=== PATIENT | female | born 1955 | race Caucasian/White ===

== ENCOUNTER → 2017-03-24 | Outpatient (CLI) | payer OTHER ==
--- NOTE | ~2017-03-24 | BD1 ---
[facility] A Service of [facility] RADIOLOGY TEXT RESULTS PATIENT: KINJAL SOLANO LOCATION: [facility] : 57 UNIT #: [id number] AGE: [address]: Lesli Archer APRN SEX: F ORDER DR: [id number] [facility] [address] [place], [place] [address] [id number] O MR#: [id number] Acc #: [id number] NAME: KINJAL SOLANO : 1955 SEX: F STUDY DATE/TIME: 03/24/2017 10:35 UNIT: [facility] ROOM: STUDY DESCRIPTION: Dexa Bone Dens 1+ Site Attending Physician: Lesli Archer A.P.R.N. Referring Physician: Lesli Archer A.P.R.N. Ordering Physician: Lesli Archer A.P.R.N. Primary Care Physician: Lesli Archer A.P.R.N. MEDICAL IMAGING REPORT This report is preliminary unless electronic signature is present EXAM Bone density scan 03/24/2017 HISTORY Postmenopausal. On estrogen patch. FINDINGS Low density scanning performed. Left proximal femur and left forearm. Patient reports prior back surgery. Bone density in the proximal right femur overall 1.102 g/cm2 for a T-score 1.3 standard deviations above the mean for reference population normal young individuals and Z-score 2.3 standard deviations above the mean for age-match population. In the right femoral neck bone mineral density 0.959 g/cm2 for T-score 1.0 standard deviations above the mean for reference population normal young individuals and Z-score 2.3 standard deviations above the mean for age-match population. In the radius one-third station of left forearm the bone mineral density is 0.691 g/cm2 for T-score 0.1 standard deviations above the mean for reference population normal young individuals and Z-score 1.5 standard deviations above the mean for age-match population. IMPRESSION 1. Normal bone mineral density in the proximal left femur and in the left forearm radius one-third station. Please correlate with the patient's clinical status. Continued surveillance is recommended. Dictated by... Sherwin Mills M.D. [facility] A Service of [facility] RADIOLOGY TEXT RESULTS PATIENT: KINJAL SOLANO LOCATION: [facility] : 57 UNIT #: [id number] AGE: [address]: Lesli Archer APRN SEX: F ORDER DR: THIS IS AN ELECTRONICALLY VERIFIED REPORT Sherwin Mills M.D. at 03/26/2017 8:25 AM VANI/andrzej TD: 03/25/2017 18:29 JOB #: [id number] MEDICAL IMAGING REPORT Page 1 of 1 COPY
== END | disposition home or self-care (01) ==
LOC: CWCC 10:13
DX: Z13.820 Encounter for screening for osteoporosis (principal)
CPT/HCPCS: 77080